=== PATIENT | female | born 1965 | race Caucasian/White ===

== ENCOUNTER → 2024-09-09 | Outpatient (CLI) | payer OTHER ==
--- NOTE | 2024-09-09 12:05 | XR ---
EXAMINATION TYPE: XR Hip 2 views RT and AP Pelvis DATE OF EXAM: 09/09/2024 COMPARISON: NONE CLINICAL INDICATION: Female, 59 years old with history of M25.551 RIGHT HIP PAIN; FINDINGS: SI joints appear symmetric and intact as does the pubic symphysis. Bilateral hip joint space is maint ained. Tiny pelvic phleboliths noted. No acute fracture, subluxation, or dislocation. IMPRESSION: No acute osseous abnormality seen. [facility], , 09/09/2024 12:03 PM
[2024-09-09 15:36] LABS: ALT 23 U/L (8-44); AST 29 U/L (13-35); Albumin 4.3 g/dL (3.8-4.9); Albumin/Globulin Ratio 1.65 Ratio (1.60-3.17); Alkaline Phosphatase 58 U/L (41-126); BUN/Creat Ratio 18.38 Ratio (12.00-20.00); Blood Urea Nitrogen 14.7 mg/dL (9.0-27.0); Calcium 9.2 mg/dL (8.7-10.3); Carbon Dioxide 28.2 mmol/L (21.6-31.8); Chloride 105 mmol/L (96-109); Chol/HDL Ratio 3.66 Ratio; Globulin 2.6 g/dL (1.6-3.3); Glucose 93 mg/dL (70-110); LDL Cholesterol,Calculated 112.1 mg/dL (0.0-131.0); Potassium 3.9 mmol/L (3.5-5.5); Sodium 142 mmol/L (135-145); T4, Free (Free Thyroxine) 1.08 ng/dL (0.80-1.80); Total Bilirubin 0.4 mg/dL (0.3-1.2); Total Protein 6.9 g/dL (6.2-8.2)
[2024-09-09 15:40] LABS: Basophils # (A) 0.03 X 10*3/uL (0.00-0.10); Basophils % (A) 1.3 %; Eosinophils # (A) 0.08 X 10*3/uL (0.04-0.35); Eosinophils % (A) 3.4 %; HCT 40.3 % (37.2-46.3); HGB 13.2 g/dL (12.0-15.0); Lymphocytes # (A) 0.89 X 10*3/uL (0.90-5.00); Lymphocytes % (A) 37.4 %; MCH 30.7 pg (27.0-32.0); MCHC 32.8 g/dL (32.0-37.0); MCV 93.7 FL (80.0-97.0); Monocytes % (A) 8.4 %; NRBC Per 100 WBC 0 X 10*3/uL (0.00-0.01); Neutrophils # (A) 1.17 X 10*3/uL (1.80-7.70); Neutrophils % (A) 49.1 %; Platelet Count 192 X 10*3/uL (140-440); RDW 11.9 % (11.5-14.5); WBC 2.38 X 10*3/uL (4.50-10.00)
== END | disposition home or self-care (01) ==
LOC: LABWHC1 10:10
PROVIDERS: ATTEND Family Medicine
DX: Z00.00 Encounter for general adult medical examination without abnormal findings (principal); E03.9 Hypothyroidism, unspecified; M25.551 Pain in right hip
CPT/HCPCS: 36415; 73502; 80053; 80061; 84439; 84443; 85025

== ENCOUNTER → 2024-10-09 | Outpatient (CLI) | payer OTHER ==
[2024-10-09 11:02] VITALS: BP 118/85; PULSE 68; RESP 19; TEMP 97.3
--- NOTE | 2024-10-09 15:45 | P.PAINPG ---
PQRS Measure Charge Sheet Comment: HISTORY OF PRESENT ILLNESS: A 59 yr old female as a referral from Catherine JAIME presents today w severe and chronic neck pain > 1 yr secondary to radiculopathy, spondylosis and facet arthropathy without myelopathy for evaluation. Pt states pain level is provoked at 8 /10 in intensity, constant, localized in the cervical spine, predominantly axial, sharp/ stabbing in character w occasional shooting pain towards the BL shoulders. Pain is provoked by flexion, sleeping on side. Pain is alleviated by PT x 6 months which ended in 2022, physician guided home exercises 4-5 times weekly since 2021, heat, medications (Tyl, Ibu), CBD topical, repositioning and rest . Cervical disability score at 26. PMH: OA, Hypothyroidism, Anxiety PSH: Hysterectomy SH: Former tobacco user, No ETOH abuse, No illicit drug use FH: Mo- Hypothyroidism All: See list Meds: See list REVIEW OF ORGAN SYSTEMS: CONSTITUTIONAL: No fevers or chills. No recent weight loss. NEUROLOGICAL: + numbness and tingling along the distal extremities. No seizure disorders or headaches. MUSCULOSKELETAL: + pain PSYCHIATRIC: Denies current depression or suicidal thoughts. Physical Examinations : Constitutional : Cooperative , not in acute distress . Neurologic : Cranial nerve II to XII intact. No focal neurological deficits. Psychiatric : alert & oriented x 3. Matching mood & appropriate affect. Judgment & insight intact. Musculoskeletal : Cervical Spine Motor strength in the deltoid and biceps: Normal right side. Normal Left side Motor strength biceps and the wrist extensors: Normal right side . Normal left side Motor strength in the triceps muscle: Normal right side. Normal left side Deep tendon reflexes: Normal at the biceps. Normal at Brachioradialis. Normal at triceps Vertebral body tenderness to deep palpation over C6 Cervical facet loading test: positive bilaterally Spurling test: positive bilaterally Neck distraction test: positive bilaterally Bong sign: positive bilaterally Lumbar spine Motor strength lower extremities ,thigh and legs 5/5 Right side , 5/5 Left side Deep tendon reflexes : Normal Knee Jerk. Normal Ankle Jerk Vertebral body tenderness over Nava Test positive Lumbar facet Loading Test: positive Right / positive Left Range of motion of the lumbar spine Flexion 30 degrees, extension 10 degrees Straight Leg Raise test: Left/ Right positive at degrees Jordi test: positive right / positive left. Severe tenderness over the Sacroiliac joint on the Right / Left sides Gaenslen test: positive bilaterally Seated flexion test: positive bilaterally. Sacral spine : Severe tenderness over the Sacroiliac joint: right side / left side Range of motion: Flexion of the lumbar spine <60 degrees Range of motion: Extension of the lumbar spine <20 degrees Gaenslen's Test positive Jordi test: positive right side / left side Thigh Thrust Test Sacral Thrust Test Imaging: None on file, awaiting reports from PCP's office Assessment/ Plan : Cervical radiculopathy DOROTA forms completed. RTC in 2 wks. All questions answered. I have spent greater than 30 minutes on patient care today. Dr Livingston was available by phone for the evaluation of this patient. The time was used to review the medical records including relevant urine studies and Prescription history (MAPs), review of the available imaging, evaluation and examination of the patient, coordination of care with the medical staff and if applicable referring physicians, as well as creation of the medical record - Pain Location Neck Non-Pharmacological Interventions: Heat, Massage Pharmacological Interventions: PRN Medication Controlled Substance Measures - Controlled Substance Measures Is patient prescribed a controlled substance at discharge?: No
== END ==
LOC: PNWHC3 10:29
PROVIDERS: ATTEND Specialist
DX: M54.12 Radiculopathy, cervical region (principal)
CPT/HCPCS: 99202

== ENCOUNTER → 2024-11-05 | Outpatient (CLI) | payer OTHER ==
--- NOTE | 2024-11-05 12:39 | MR ---
MRI CERVICAL SPINE: CLINICAL HISTORY: Neck pain, headaches. Neck pain, headaches. Radiculopathy. TECHNIQUE: Multiplanar, multisequence imaging of the cervical spine is performed without IV contrast. COMPARISON: None. FINDINGS: Sagittal images of the cervical spine show the craniocervical junction to appear within nor mal limits. The cervical and upper thoracic spinal cord is normal in course, caliber, and signal. Th ere is grade 1 retrolisthesis C4 on C5 and C5 on C6. The vertebral body heights are normal. There i s moderate spurring and disc space narrowing at the C4-C5 and C5-C6 levels. The bone marrow signal in tensity is within normal limits. Axial images show C2-C3 level to appear within normal limits. Axial images at C3-C4 level shows mild broad-based posterior disc protrusion minimally effacing anter ior thecal sac. Bilateral neural foramina are patent. Axial images at C4-C5 level shows spondylosis with broad-based left paracentral disc protrusion effac ing anterolateral thecal sac up to the ventral surface of spinal cord and causing moderate to advance d left-sided neural foraminal narrowing. Axial images at C5-C6 level show focal left paracentral/foraminal disc protrusion facing anterolatera lly thecal sac and causing moderate left-sided neural foraminal narrowing. Axial images at C6-C7 and C7-T1 levels appear within normal limits. There is suggestion of at least one posterior T2 hyperintense left thyroid nodule measuring 1.1 cm ax ial image 22. IMPRESSION: 1. Multilevel spondylolisthesis and degenerative change in the mid cervical spine as detailed above. 2. Greater than 1 cm left thyroid nodule felt present. Advise thyroid ultrasound follow-up to further evaluate and characterize if this is not known finding. [facility], , 11/05/2024 12:36 PM
== END | disposition home or self-care (01) ==
LOC: RADMRIMAIN 10:03
PROVIDERS: ATTEND Specialist
DX: M50.122 Cervical disc disorder at C5-C6 level with radiculopathy (principal); M47.26 Other spondylosis with radiculopathy, lumbar region; M43.12 Spondylolisthesis, cervical region; E04.1 Nontoxic single thyroid nodule; M99.71 Connective tissue and disc stenosis of intervertebral foramina of cervical region
CPT/HCPCS: 72141

== ENCOUNTER → 2024-11-27 | Outpatient (CLI) | payer OTHER ==
--- NOTE | 2024-11-27 14:06 | US ---
EXAMINATION TYPE: US thyroid st tissue head/neck DATE OF EXAM: 11/27/2024 COMPARISON: MR CLINICAL INDICATION: Female, 59 years old with history of E05.00 THYROTOXICOSIS W DIFFUSE GOITER; On thyroid meds. Patient states having history of nodule with biopsy at [facility]. TECHNIQUE: Grayscale and color Doppler imaging of the thyroid gland. FINDINGS: GLAND SIZE: Right Lobe: 4.4 x 1.3 x 1.4 cm Overall Parenchyma: heterogeneous Left Lobe: 4.7 x 1.5 x 1.2 cm Overall Parenchyma: heterogeneous Isthmus Thickness: 0.4 cm NODULES RIGHT: # of nodules measured on right: 1 1. 0.7 X 0.5 x 0.4 cm, upper lateral, Prior size: no prior here TIRADS Score: 3 TIRADS Category 3: Composition: Solid or almost completely solid (2 points). Echogenicity: Hyperechoic or isoechoic (1 point). Shape: Wider than tall (0 points). Margin: Smooth (0 points). Echogenic foci: None or large comet-tail artifacts (0 points) Recommendation: If >2.5cm: FNA; If >1.5cm: Follow up at 1,3,5 years LEFT: # of nodules measured on left: 1 1. 1.6 X 1.0 x 0.9 cm, upper mid, Prior size: No prior here TIRADS Score: 3 TIRADS Category 3: Composition: Solid or almost completely solid (2 points). Echogenicity: Hyperechoic or isoechoic (1 point). Shape: Wider than tall (0 points). Margin: Smooth (0 points). Echogenic foci: None or large comet-tail artifacts (0 points) Recommendation: If >2.5cm: FNA; If >1.5cm: Follow up at 1,3,5 years ISTHMUS: # of nodules measured in the isthmus: 1 1. 0.8 X 0.7 x 0.3 cm left lateral Prior size: No prior here TIRADS Score: 4 TIRADS Category 4: Composition: Solid or almost completely solid (2 points). Echogenicity: Hypoechoic (2 points). Shape: Wider than tall (0 points). Margin: Smooth (0 points). Echogenic foci: None or large comet-tail artifacts (0 points) Recommendation: If >1.5cm: FNA; If >1cm: Follow up at 1,2, 3,5 years Bilateral neck scanned, no evidence of lymphadenopathy. IMPRESSION: Thyroid nodules that meet criteria for follow-up. [facility], , 11/27/2024 2:04 PM
== END | disposition home or self-care (01) ==
LOC: RADUSWWP 13:01
PROVIDERS: ATTEND Family Medicine
DX: E05.00 Thyrotoxicosis with diffuse goiter without thyrotoxic crisis or storm (principal); E04.2 Nontoxic multinodular goiter
CPT/HCPCS: 76536

== ENCOUNTER → 2024-11-27 | Outpatient (CLI) | payer OTHER ==
[2024-11-27 09:09] VITALS: BP 115/70; PULSE 73; RESP 17; TEMP 98.1
--- NOTE | 2024-11-27 15:46 | P.PAINPG ---
Objective - Vital Signs Vital signs: Vital Signs Temp 98.1 F 11/27/24 09:05 Pulse 73 11/27/24 09:05 Resp 17 11/27/24 09:05 BP 115/70 11/27/24 09:05 Pulse Ox 97 11/27/24 09:05 FiO2 Intake & Output 11/26/24 11/27/24 11/27/24 18:59 06:59 18:59 Weight 72.575 kg PQRS Measure Charge Sheet Mode of Arrival: Ambulatory Comment: HISTORY OF PRESENT ILLNESS: A 59 yr old female presents today w severe and chronic neck pain > 1 yr secondary to radiculopathy, spondylosis and facet arthropathy without myelopathy for evaluation. Pt states pain level is provoked at 8 /10 in intensity, constant, localized in the cervical spine, predominantly axial, sharp/ stabbing in character w occasional shooting pain towards the BL shoulders. Pain is provoked by flexion, sleeping on side. Pain is alleviated by PT x 6 months which ended in 2022, physician guided home exercises 4-5 times weekly since 2021, heat, medications, topical, repositioning and rest . Interventional procedures include C7-T1 SHALA (05/30/23 ineffective) Medications include Tyl, Ibu, CBD topical REVIEW OF ORGAN SYSTEMS: CONSTITUTIONAL: No fevers or chills. No recent weight loss. NEUROLOGICAL: + numbness and tingling along the distal extremities. No seizure disorders or headaches. MUSCULOSKELETAL: + pain PSYCHIATRIC: Denies current depression or suicidal thoughts. Physical Examinations : Constitutional : Cooperative , not in acute distress . Neurologic : Cranial nerve II to XII intact. No focal neurological deficits. Psychiatric : alert & oriented x 3. Matching mood & appropriate affect. Judgment & insight intact. Musculoskeletal : Cervical Spine Motor strength in the deltoid and biceps: Normal right side. Normal Left side Motor strength biceps and the wrist extensors: Normal right side . Normal left side Motor strength in the triceps muscle: Normal right side. Normal left side Deep tendon reflexes: Normal at the b iceps. Normal at Brachioradialis. Normal at triceps Vertebral body tenderness to deep palpation over C6 Cervical facet loading test: positive bilaterally Spurling test: positive BL C6-C7 Neck distraction test: positive bilaterally Bong sign: positive bilaterally Lumbar spine Motor strength lower extremities ,thigh and legs 5/5 Right side , 5/5 Left side Deep tendon reflexes : Normal Knee Jerk. Normal Ankle Jerk Vertebral body tenderness over Nava Test positive Lumbar facet Loading Test: positive Right / positive Left Range of motion of the lumbar spine Flexion 30 degrees, extension 10 degrees Straight Leg Raise test: Left/ Right positive at degrees Jordi test: positive right / positive left. Severe tenderness over the Sacroiliac joint on the Right / Left sides Gaenslen test: positive bilaterally Seated flexion test: positive bilaterally. Sacral spine : Severe tenderness over the Sacroiliac joint: right side / left side Range of motion: Flexion of the lumbar spine <60 degrees Range of motion: Extension of the lumbar spine <20 degrees Gaenslen's Test positive Jordi test: positive right side / left side Thigh Thrust Test Sacral Thrust Test Imaging: MRI noncontrast cervical spine from 11/05/2024 reviewed X ray hips from 09/09/24 reviewed X ray cervical spine from 05/02/23 reviewed Assessment/ Plan : C4-C6 radiculopathy Recommendation of SHALA C6-C7 #1. Risks, benefits of procedure discussed and pt verbalized understanding. Protocol for discontinuation/ continuation of medications alva procedure discussed. All questions answered. I have spent greater than 30 minutes on patient care today. Dr Livingston was available by phone for the evaluation of this patient. The time was used to review the medical records including relevant urine studies and Prescription history (MAPs), review of the available imaging, evaluation and examination of the patient, coordination of care with the medical staff and if applicable referring physicians, as well as creation of the medical record - Pain Location Right Neck Non-Pharmacological Interventions: Heat Pharmacological Interventions: Medication, Topical Medication PQRS Narrative: Blood Pressure 115/70 Pain Intensity [Right Neck] 4 Scale Used Numeric (1 - 10) Hx Alcohol Use (MH) Yes: OCCASIONAL Controlled Substance Measures - Controlled Substance Measures Is patient prescribed a controlled substance at discharge?: Yes When asked, does pt state using other controlled substances?: No If prescribed controlled substance>3 days was MAPS reviewed?: Yes
== END ==
LOC: PNWHC3 08:54
PROVIDERS: ATTEND Specialist
DX: M54.16 Radiculopathy, lumbar region (principal)
CPT/HCPCS: 99212

== ENCOUNTER 2024-12-10 13:18 | Day surgery (SDC) | payer OTHER ==
[2024-12-06 13:51] VITALS: BMI 23.6
[2024-12-10] MEDS ORDERED: LACTATED RINGERS 1,000 ML IV SCH (13:31)
[2024-12-10 13:45] VITALS: RESP 16; TEMP 98.3
[2024-12-10] MEDS ORDERED: DEXAMETHASONE SOD PHOSPHATE 10 MG/ML 1 ML VIAL ONE (14:15)
[2024-12-10] MEDS ORDERED: IOPAMIDOL M200 10 ML VIAL ONE (14:15)
--- NOTE | 2024-12-10 14:25 | P.PCN ---
Date of Procedure: 12/10/24 Procedure(s) Performed: . PROCEDURE 1. Cervical epidural steroid injection under fluoroscopic guidance, C6-7 (fluoroscopy images available in the radiology department ) 2. Cervical epidurogram. PREOPERATIVE DIAGNOSIS: 1- Cervical foraminal stenosis 2- Cervical radiculopathy., 3-cervical spondylosis with cervical Facet arthropathy without myelopathy. POSTOPERATIVE DIAGNOSIS: : 1-cervical foraminal stenosis 2- Cervical radiculopathy. 3-,cervical spondylosis with cervical Facet arthropathy without myelopathy. 4-cervical spinal stenosis ANESTHESIA: Local anesthesia with lidocaine 1% 3 ml only EBL 0 PROCEDURE INDICATION: The patient with neck pain and radiculitis unresponsive to conservative treatment consents for procedure. PROCEDURE DESCRIPTION / TECHNIQUE: The patient was seen and identified in the preoperative area. Risks, benefits, complications, including but not limited to infections ,bleeding , allergic reactions to the medications ,and not complete pain releife, and alternatives were discussed with the patient, the patient agreed to proceed with the procedure and signed the consent. Patient was taken to the OR and time out was completed. The patient was placed in the prone position on the procedure table. A pillow was placed under the patients chest to increase the cervical interlaminar space. The cervical area was prepped and draped in the usual sterile fashion. Vital signs were closely monitored during the procedure. Using anterior-posterior fluoroscopy, the C6-7 interlaminar space was identified and the skin over this site was marked and then infiltrated with 1% lidocaine subcutaneously. Subsequently, a 20-gauge 3-1/2-inch Tuohy epidural needle was inserted and advanced toward the epidural space by means of the ``hanging-drop technique and guided by AP and lateral fluoroscopy. The correct needle position in the epidural space was verified with the injection of 2 mL of the water soluble contrast dye Isovue-200 and observing an excellent epidurogram with the epidural spread of the dye, after negative aspiration for blood and CSF and in the absence of paresthesias. then, mixture containing 20 mg Dexamethasone and 2 ml of preservative-free normal saline injected and a washout of epidurogram was seen. Needle was withdrawn intact, skin was cleansed, and bandages were applied. Complications= none. Disposition= patient was placed in supine position and transferred to the recovery room area in stable condition and there was no evidence of upper or lower extremity motor or sensory deficit after the procedure patient was discharged from recovery room after discharge criteria met and home discharge instructions was given by the staff and patient will follow with the pain clinic in 2-4 weeks
--- NOTE | 2024-12-10 14:31 | FL ---
EXAMINATION TYPE: FL guided pain mgmt statistic DATE OF EXAM: 12/10/2024 CLINICAL INDICATION: Female, 59 years old with history of KOLE; PHH, pain TECHNIQUE: Fluoroscopy. COMPARISON: None. FINDINGS: Fluoroscopic guidance was provided during pain relief procedure performed by Dr. Livingston . A total of 3.7 seconds of fluoroscopic time was utilized during the procedure and one image was ac quired. Image acquired shows needle localization near the cervicothoracic junction. Degeneration duncan nges of the visualized joints. Total DAP: 0.56470 mGym2. IMPRESSION: As Above. [facility], , 12/10/2024 2:29 PM
[2024-12-10 14:43] VITALS: BP 144/86; PULSE 68
== END 2024-12-10 14:55 | disposition home or self-care (01) ==
LOC: ORPAIN 13:18
PROVIDERS: ATTEND Specialist
DX: M48.02 Spinal stenosis, cervical region (principal); M47.22 Other spondylosis with radiculopathy, cervical region
CPT/HCPCS: 62321; J1100; Q9966

== ENCOUNTER → 2024-12-24 | Outpatient (CLI) | payer OTHER ==
--- NOTE | 2024-12-25 11:13 | MM ---
Reason for Exam: Screening (asymptomatic). Last screening mammogram was performed 9 month(s) ago. Patient History: Menarche at age 17. First Full-Term at age 31. Late child-bearing (after 31). Hysterectomy at age 54. Postmenopausal. Risk Values: Katelyn 5 year model risk: 1.7%. NCI Lifetime model risk: 9.6%. Prior Study Comparison: 03/01/2022 Bilateral Screening Mammogram, [facility]. 03/03/2022 Bilateral Screening Mammogram, [facility] 03/20/2023 Bilateral Screening Mammogram, [facility]. 03/25/2024 Bilateral Screening Mammogram, [facility]. Tissue Density: The breasts are heterogeneously dense, which may obscure small masses. Findings: Analyzed By CAD. There is no suspicious group of microcalcifications or new suspicious mass in either breast. Overall Assessment: Benign, BI-RAD 2 Management: Screening Mammogram of both breasts in 1 year. . Patient should continue monthly self-breast exams. A clinical breast exam by your physician is recommended on an annual basis. This exam should not preclude additional follow-up of suspicious palpable abnormalities. Note on Katelyn scores and lifetime risk: 1. A Katelyn score greater than 3% is considered moderate risk. If this is the case, consider specialist referral to assess eligibility for a risk reducing agent. 2. If overall lifetime risk for the development of breast cancer is 20% or higher, the patient may qualify for future screening with alternating mammogram and breast MRI. [facility], , 12/25/2024 11:10 AM. Electronically signed and approved by: Clem Allen M.D. Radiologis
== END | disposition home or self-care (01) ==
LOC: RADMAMWWP 09:45
PROVIDERS: ATTEND Internal Medicine Pulmonary Disease
DX: Z12.31 Encounter for screening mammogram for malignant neoplasm of breast (principal); R92.333 Mammographic heterogeneous density, bilateral breasts; Z78.0 Asymptomatic menopausal state
CPT/HCPCS: 77063; 77067

== ENCOUNTER → 2025-01-08 | Outpatient (CLI) | payer OTHER ==
[2025-01-08 09:46] VITALS: BP 128/78; PULSE 66; RESP 16; TEMP 97.1
--- NOTE | 2025-01-08 16:48 | P.PAINPG ---
PQRS Measure Charge Sheet Comment: HISTORY OF PRESENT ILLNESS: A 59 yr old female presents today w severe and chronic neck pain > 1 yr secondary to radiculopathy, spondylosis and facet arthropathy without myelopathy for evaluation s/p SHALA C6-C7 #1. Pt states she experienced 80 % pain relief x 4 wks s/p procedure. Pt states pain level is provoked at 5-8 /10 in intensity, constant, localized in the R cervical spine, predominantly axial, sharp in character w occasional shooting pain up the R side of head and neck. Pain is provoked by flexion, sleeping on side. Pain is alleviated by PT x 6 months which ended in 2022, physician guided home exercises 4-5 times weekly since 2021, heat, medications, topical, repositioning and rest . Interventional procedures include C7-T1 SHALA (05/30/23 ineffective), SHALA C6-C7 x1 (12/10/24) Medications include Tyl, Ibu, CBD topical REVIEW OF ORGAN SYSTEMS: CONSTITUTIONAL: No fevers or chills. No recent weight loss. NEUROLOGICAL: + numbness and tingling along the distal extremities. No seizure disorders or headaches. MUSCULOSKELETAL: + pain PSYCHIATRIC: Denies current depression or suicidal thoughts. Physical Examinations : Constitutional : Cooperative , not in acute distress . Neurologic : Cranial nerve II to XII intact. No focal neurological deficits. Psychiatric : alert & oriented x 3. Matching mood & appropriate affect. Judgment & insight intact. Musculoskeletal : Cervical Spine Motor strength in the deltoid and biceps: Normal right side. Normal Left side Motor strength biceps and the wrist extensors: Normal right side . Normal left side Motor strength in the triceps muscle: Normal right side. Normal left side Deep tendon reflexes: Normal at the biceps. Normal at Brachioradialis. Normal at triceps Vertebral body tenderness to deep palpation over C6 Cervical facet loading test: positive R C4-C5/ C5-C6 Spurling test: positive BL C6-C7 Neck distraction test: positive bilaterally Bong sign: positive bilaterally Lumbar spine Motor strength lower extremities ,thigh and legs 5/5 Right side , 5/5 Left side Deep tendon reflexes : Normal Knee Jerk. Normal Ankle Jerk Vertebral body tenderness over Nava Test positive Lumbar facet Loading Test: positive Right / positive Left Range of motion of the lumbar spine Flexion 30 degrees, extension 10 degrees Straight Leg Raise test: Left/ Right positive at degrees Jordi test: positive right / positive left. Severe tenderness over the Sacroiliac joint on the Right / Left sides Gaenslen test: positive bilaterally Seated flexion test: positive bilaterally. Sacral spine : Severe tenderness over the Sacroiliac joint: right side / left side Range of motion: Flexion of the lumbar spine <60 degrees Range of motion: Extension of the lumbar spine <20 degrees Gaenslen's Test positive Jordi test: positive right side / left side Thigh Thrust Test Sacral Thrust Test Imaging: MRI noncontrast cervical spine from 11/05/2024 reviewed X ray hips from 09/09/24 reviewed X ray cervical spine from 05/02/23 reviewed Assessment/ Plan : C4-C6 radiculopathy, C4-C6 facet arthropathy Recommendation of R MBB C4-C5/ C5-C6 #1. Risks, benefits of procedure discussed and pt verbalized understanding. Protocol for discontinuation/ continuation of medications alva procedure discussed. Minimal anesthesia including Fentanyl and Versed if clinically indicated. All questions answered. I have spent greater than 30 minutes on patient care today. Dr Livingston was available by phone for the evaluation of this patient. The time was used to review the medical records including relevant urine studies and Prescription history (MAPs), review of the available imaging, evaluation and examination of the patient, coordination of care with the medical staff and if applicable referring physicians, as well as creation of the medical record PQRS Narrative: Hx Alcohol Use (MH) Yes: OCCASIONAL Home Medications: Ambulatory Orders diazePAM [Valium] 5 mg PO DAILY 1 Days #2 tab 11/27/24 Ascorbic Acid [Vitamin C] 500 mg PO DAILY 12/06/24 Cholecalciferol (Vitamin D3) [Vitamin D3 (125 MCG = 5,000 IU)] 125 mcg PO DAILY 12/06/24 L.acidoph,Paracasei, B.lactis [Probiotic] 1 each PO DAILY 12/06/24 Levothyroxine Sodium 100 mcg PO DAILY 12/06/24 Magnesium Oxide [Magnesium] 500 mg PO DAILY 12/06/24 Multivit-Min/Iron/Folic/Lutein [Centrum Silver Women Tablet] 1 each PO DAILY 12/06/24 Rizatriptan Odt [Maxalt Top Lift Nailer] 10 mg PO ONCE PRN 12/06/24 calcium polycarbophiL [Fibercon] 625 mg PO DAILY 12/06/24 estradioL [Estrace] 1 mg PO DAILY 12/06/24 Controlled Substance Measures - Controlled Substance Measures Is patient prescribed a controlled substance at discharge?: No
== END ==
LOC: PNWHC3 09:25
PROVIDERS: ATTEND Specialist
DX: M47.22 Other spondylosis with radiculopathy, cervical region (principal)
CPT/HCPCS: 99211

== ENCOUNTER 2025-02-18 12:55 | Day surgery (SDC) | payer OTHER ==
[2025-01-31 09:42] VITALS: BMI 23.6
[2025-02-18 14:01] VITALS: RESP 16; TEMP 98.4
[2025-02-18] MEDS: IV FLUID CONTINUATION 1,000 ML IV ONE (14:05)
[2025-02-18] MEDS: LACTATED RINGERS 1,000 ML IV SCH (14:05)
[2025-02-18] MEDS ORDERED: ROPIVACAINE 5 MG/ML 30 ML VIAL ONE (14:24)
[2025-02-18] MEDS ORDERED: fentaNYL (PF) 50 MCG/ML 2 ML AMP ONE (14:24)
[2025-02-18] MEDS ORDERED: MIDAZOLAM 2 MG/2 ML VIAL ONE (14:24)
[2025-02-18] MEDS: IV FLUID CONTINUATION 500 ML IV ONE (14:54)
--- NOTE | 2025-02-18 14:56 | P.PCN ---
Description of Procedure: Preprocedure diagnosis. Cervical facet joint arthropathy, cervical spine spondylosis, cervical degenerative disc disease. Postprocedure diagnosis. As above. Procedure done. Bilateral C4-5, C5-6 facet joint (C4, C5, C6 medial branch of dorsal ramus) diagnostic injection with local anesthetics under fluoroscopic guidance. Anesthesia. IV sedation of Versed 2 milligram, fentanyl 50 micrograms give in OR. Continuous pulse ox, EKG, blood pressure and verbal communication was maintained with the patient in OR. Sedation time- [id number] . Blood loss. None. Indication. Patient has got the diagnoses of cervical spondylolysis, facet joint arthropathy with neck pain. Discussed with the patient procedure, alternatives, complications including infection, bleeding, nerve damage, paralysis all of which could be permanent. Patient understands and all questions are answered. Patient has symptoms both right and left side of the neck that is why I am doing bilateral diagnostic medial branch block rather than only 1 side as scheduled. Discussed with the patient. Procedure note. After getting consent patient in OR in prone position. Back of the neck was prepped with chlorhexidine and draped in sterile fashion. After injecting 3 mL of plain 1% lidocaine subcutaneously, a 22-gauge spinal needle was introduced under tunnel vision of the fluoroscope AP view at the waist of the articular pillar (lateral mass) at C4 vertebral level. In the lateral view of the fluoroscope it was confirmed that the tip of the needle stayed within the dorsal half of the articular pillar (lateral mass). So, right C4-5 facet joint was targeted by blocking right C4 and C5 medial branch, right C5-6 facet joint was targeted by blocking right C5 and C6 medial branch. In exactly the same way , after subcutaneous injection of lidocaine, 22-gauge spinal needles were introduced under tunnel vision of the fluoroscope AP view at the waist of the articular pillars (lateral mass) at C5 and C6 vertebral level. In the lateral view of the fluoroscope it was confirmed that the tip of the needle stayed within the dorsal half of the articular pillar (lateral mass). At each needle, 0.5 mL of 0.5% ropivacaine preservative-free was injected. In exactly same way left C4-5, C5-6 facet joints were targeted by blocking left C4, C5, C6 medial branch of dorsal ramus. After the procedure needle was taken out and bandage was applied. Disposition. Patient tolerated the procedure well. No complication. Discharged home in stable condition.
--- NOTE | 2025-02-18 14:57 | FL ---
Fluoroscopy INDICATION: Pain FINDINGS: Fluoroscopy time: 41.9 seconds. Total dose area product (DAP) in uGy*m?, mGy*cm? (or similar): 0.87280 Images obtained: 2. Images document needles directed towards the cervical spine IMPRESSION: 1. Documentation of fluoroscopy. [facility], , 02/18/2025 2:54 PM
[2025-02-18 15:11] VITALS: BP 123/87; PULSE 64
== END 2025-02-18 15:34 | disposition home or self-care (01) ==
LOC: ORPAIN 12:55
PROVIDERS: ATTEND Pain Medicine Interventional Pain Medicine
DX: M47.812 Spondylosis without myelopathy or radiculopathy, cervical region (principal); M50.323 Other cervical disc degeneration at C6-C7 level
CPT/HCPCS: 64490; 64491; J2250; J3010; J2795; 99152; 99153

== ENCOUNTER → 2025-03-05 | Outpatient (CLI) | payer OTHER ==
[2025-03-05 07:53] VITALS: BP 131/82; PULSE 56; RESP 16; TEMP 97.2
--- NOTE | 2025-03-05 16:10 | P.PAINPG ---
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 Pt states she experienced 80 % pain relief x 24 hrs s/p procedure. Pt states pain level is provoked at 5-8 /10 in intensity, constant, localized in the cervical spine R> L, predominantly axial, sharp in character without shooting pain. Pain is provoked by flexion, sleeping on side. Pain is alleviated by PT x 6 months which ended in 2022, physician guided home exercises 4-5 times weekly since 2021, heat, medications, topical, repositioning and rest . Interventional procedures include C7-T1 SHALA (05/30/23 ineffective), SHALA C6-C7 x1 (12/10/24), BL MBB C4-C6 x1 Medications include Tyl, Ibu, CBD topical REVIEW OF ORGAN SYSTEMS: CONSTITUTIONAL: No fevers or chills. No recent weight loss. NEUROLOGICAL: + numbness and tingling along the distal extremities. No seizure disorders or headaches. MUSCULOSKELETAL: + pain PSYCHIATRIC: Denies current depression or suicidal thoughts. Physical Examinations : Constitutional : Cooperative , not in acute distress . Neurologic : Cranial nerve II to XII intact. No focal neurological deficits. Psychiatric : alert & oriented x 3. Matching mood & appropriate affect. Judgment & insight intact. Musculoskeletal : Cervical Spine Motor strength in the deltoid and biceps: Normal right side. Normal Left side Motor strength biceps and the wrist extensors: Normal right side . Normal left side Motor strength in the triceps muscle: Normal right side. Normal left side Deep tendon reflexes: Normal at the biceps. Normal at Brachioradialis. Normal at triceps Vertebral body tenderness to deep palpation over C6 Cervical facet loading test: positive R C4-C5/ C5-C6 Spurling test: positive BL C6-C7 Neck distraction test: positive bilaterally Bong sign: positive bilaterally Lumbar spine Motor strength lower extremities ,thigh and legs 5/5 Right side , 5/5 Left side Deep tendon reflexes : Normal Knee Jerk. Normal Ankle Jerk Vertebral body tenderness over Nava Test positive Lumbar facet Loading Test: positive Right / positive Left Range of motion of the lumbar spine Flexion 30 degrees, extension 10 degrees Straight Leg Raise test: Left/ Right positive at degrees Jordi test: positive right / positive left. Severe tenderness over the Sacroiliac joint on the Right / Left sides Gaenslen test: positive bilaterally Seated flexion test: positive bilaterally. Sacral spine : Severe tenderness over the Sacroiliac joint: right side / left side Range of motion: Flexion of the lumbar spine <60 degrees Range of motion: Extension of the lumbar spine <20 degrees Gaenslen's Test positive Jordi test: positive right side / left side Thigh Thrust Test Sacral Thrust Test Imaging: MRI noncontrast cervical spine from 11/05/2024 reviewed X ray hips from 09/09/24 reviewed X ray cervical spine from 05/02/23 reviewed Assessment/ Plan : C4-C6 radiculopathy, C4-C6 facet arthropathy Recommendation of BL MBB C4-C5/ C5-C6 #2. Risks, benefits of procedure discussed and pt verbalized understanding. Protocol for discontinuation/ continuation of medications alva procedure discussed. Minimal anesthesia including Fentanyl and Versed if clinically indicated. All questions answered. I have spent greater than 30 minutes on patient care today. Dr Livingston was available by phone for the evaluation of this patient. The time was used to review the medical records including relevant urine studies and Prescription history (MAPs), review of the available imaging, evaluation and examination of the patient, coordination of care with the medical staff and if applicable referring physicians, as well as creation of the medical record - Pain Location Bilateral Lower Neck Non-Pharmacological Interventions: Heat, Home Exercise, Inactivity, Physical Therapy, Position/Reposition, Sitting, Stretching Pharmacological Interventions: Block, Epidural, PRN Medication, Topical Medication PQRS Narrative: Hx Alcohol Use (MH) Yes: OCCASIONAL Home Medications: Ambulatory Orders Ascorbic Acid [Vitamin C] 500 mg PO DAILY 12/06/24 Cholecalciferol (Vitamin D3) [Vitamin D3 (125 MCG = 5,000 IU)] 125 mcg PO DAILY 12/06/24 L.acidoph,Paracasei, B.lactis [Probiotic] 1 each PO DAILY 12/06/24 Levothyroxine Sodium 100 mcg PO DAILY 12/06/24 Magnesium Oxide [Magnesium] 500 mg PO DAILY 12/06/24 Multivit-Min/Iron/Folic/Lutein [Centrum Silver Women Tablet] 1 each PO DAILY 12/06/24 Rizatriptan Odt [Maxalt Shoe Puller] 10 mg PO ONCE PRN 12/06/24 calcium polycarbophiL [Fibercon] 625 mg PO DAILY 12/06/24 estradioL [Estrace] 1 mg PO DAILY 12/06/24 Ibuprofen [Motrin] 800 mg PO Q8H PRN 01/31/25 traZODone HCL 150 mg PO HS 01/31/25 Controlled Substance Measures - Controlled Substance Measures Is patient prescribed a controlled substance at discharge?: No
== END ==
LOC: PNWHC3 07:33
PROVIDERS: ATTEND Specialist
DX: M47.22 Other spondylosis with radiculopathy, cervical region (principal)
CPT/HCPCS: 99211

== ENCOUNTER 2025-03-07 13:18 | Day surgery (SDC) | payer OTHER ==
[2025-03-07] MEDS: IV FLUID CONTINUATION 1,000 ML IV ONE (13:35)
[2025-03-07 13:42] VITALS: TEMP 97.2
[2025-03-07] MEDS ORDERED: LACTATED RINGERS 1,000 ML IV SCH (13:56)
[2025-03-07] MEDS: LACTATED RINGERS 1,000 ML BAG IV STA (13:57)
[2025-03-07] MEDS ORDERED: MIDAZOLAM 2 MG/2 ML VIAL ONE (14:35)
[2025-03-07] MEDS ORDERED: ROPIVACAINE 5MG/ML 20ML VIAL ONE (14:35)
[2025-03-07] MEDS ORDERED: fentaNYL (PF) 50 MCG/ML 2 ML AMP ONE (14:35)
--- NOTE | 2025-03-07 14:55 | P.PCN ---
Date of Procedure: 03/07/25 Procedure(s) Performed: PREOPERATIVE DIAGNOSIS: 1-Cervical Spondylosis with Facet Arthropathy.without myelopathy. 2-cervical degenerative disc disease POSTOPERATIVE DIAGNOSIS:1-cervical spondylosis with facet arthropathy without myelopathy. 2-cervical degenerative disc disease PROCEDURES: Diagnostic bilateral C4 , C5 ,C6 medial branch blocks, with fluoroscopic guidance (fluoroscopy images available in radiology department ) ( to target the facet joint at bilateral C4- 5, C5- 6 )#2nd ANESTHESIA: moderate sedation with Versed 2 mg , and fentanyl 50 micrograms (sedation start time 14:35 ,end time 14:53 ) EBL: Minimal PROCEDURE INDICATION: The patient with neck pain secondary to cervical arthropathy unresponsive to more conservative treatments. PROCEDURE DESCRIPTION / TECHNIQUE: The patient was seen and identified in the preoperative area. Risks, benefits, complications, and alternatives were discussed with the patient, the patient agreed to proceed with the procedure and signed the consent. IV was started. Vital signs remained stable throughout the procedure. Patient was taken to the OR and time out was completed. The patient was placed in the prone position on the procedure table. A pillow was placed under the patients chest to increase the cervical interlaminar space. The cervical area was prepped and draped in the usual sterile fashion. Critical pause was taken. Vital signs were closely monitored during the procedure. Conscious sedation was used during the procedure to decrease patient´s anxiety. Using cross-table lateral fluoroscopy, the centroid of the trapezoid of right C4 , C5 and C6, was identified, marked, and localized with 1% lidocaine 1 ml at each level for skin and Sub Q infiltrations . Subsequently, a 23 G 3 spinal needle was advanced guided by fluoroscopy to the centroid of the trapezoid of Right C4 , C5, C6 . [place] tip position was confirmed at the centroid of the trapezoids of Right C4 , C5 ,C6 with anteroposterior fluoroscopy. Subsequently, 2 ml of preservative-free Ropivacaine 0.5% and half ml was injected after negative aspiration for blood and CSF. [place] was then removed intact the same procedure was repeated at the left C4 , C5 , and C6 levels. COMPLICATIONS: No acute complications. DISPOSITION / PLANS: The patient was placed in a supine position and transferred to the recovery area in a stable condition for observation and was discharged from the recovery room after meeting discharge criteria. Home discharge instructions given to the patient by the staff. The patient was reexamined prior to discharge. The patient will schedule a follow up in the clinic in 2-4 weeks.
[2025-03-07] MEDS: IV FLUID CONTINUATION 700 ML IV ONE (15:01)
[2025-03-07 15:03] VITALS: RESP 16
--- NOTE | 2025-03-07 15:10 | FL ---
EXAMINATION TYPE: FL guided pain mgmt statistic DATE OF EXAM: 03/07/2025 FLUOROSCOPY MIGNON CERV FB 25 SEC FL .[id number] DAP 4 images are submitted. [facility], Workstation: [id number], 03/07/2025 3:08 PM
[2025-03-07 15:29] VITALS: BP 139/80; PULSE 56
== END 2025-03-07 15:43 | disposition home or self-care (01) ==
LOC: ORPAIN 13:18
PROVIDERS: ATTEND Specialist
DX: M47.812 Spondylosis without myelopathy or radiculopathy, cervical region (principal); M50.321 Other cervical disc degeneration at C4-C5 level
CPT/HCPCS: 64490; 64491; J2250; J3010; J2795; 99152

== ENCOUNTER → 2025-03-31 | Outpatient (CLI) | payer OTHER ==
[2025-03-31 08:12] VITALS: BP 119/79; PULSE 61; RESP 19
--- NOTE | 2025-03-31 16:40 | P.PAINPG ---
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 Pt states she experienced 85 % pain relief x 24 hrs s/p procedure. Pt states pain level is provoked at 5-8 /10 in intensity, constant, localized in the cervical spine R> L, predominantly axial, sharp in character without shooting pain. Pain is provoked by flexion, sleeping on side. Pain is alleviated by PT x 6 months which ended in 2022, physician guided home exercises 4-5 times weekly since 2021, heat, medications, topical, repositioning and rest . Interventional procedures include C7-T1 SHALA (05/30/23 ineffective), SHALA C6-C7 x1 (12/10/24), BL MBB C4-C6 x2 Medications include Tyl, Ibu, CBD topical REVIEW OF ORGAN SYSTEMS: CONSTITUTIONAL: No fevers or chills. No recent weight loss. NEUROLOGICAL: + numbness and tingling along the distal extremities. No seizure disorders or headaches. MUSCULOSKELETAL: + pain PSYCHIATRIC: Denies current depression or suicidal thoughts. Physical Examinations : Constitutional : Cooperative , not in acute distress . Neurologic : Cranial nerve II to XII intact. No focal neurological deficits. Psychiatric : alert & oriented x 3. Matching mood & appropriate affect. Judgment & insight intact. Musculoskeletal : Cervical Spine Motor strength in the deltoid and biceps: Normal right side. Normal Left side Motor strength biceps and the wrist extensors: Normal right side . Normal left side Motor strength in the triceps muscle: Normal right side. Normal left side Deep tendon reflexes: Normal at the biceps. Normal at Brachioradialis. Normal at triceps Vertebral body tenderness to deep palpation over C6 Cervical facet loading test: positive R C4-C5/ C5-C6 Spurling test: positive BL C6-C7 Neck distraction test: positive bilaterally Bong sign: positive bilaterally Lumbar spine Motor strength lower extremities ,thigh and legs 5/5 Right side , 5/5 Left side Deep tendon reflexes : Normal Knee Jerk. Normal Ankle Jerk Vertebral body tenderness over Nava Test positive Lumbar facet Loading Test: positive Right / positive Left Range of motion of the lumbar spine Flexion 30 degrees, extension 10 degrees Straight Leg Raise test: Left/ Right positive at degrees Jordi test: positive right / positive left. Severe tenderness over the Sacroiliac joint on the Right / Left sides Gaenslen test: positive bilaterally Seated flexion test: positive bilaterally. Sacral spine : Severe tenderness over the Sacroiliac joint: right side / left side Range of motion: Flexion of the lumbar spine <60 degrees Range of motion: Extension of the lumbar spine <20 degrees Gaenslen's Test positive Jordi test: positive right side / left side Thigh Thrust Test Sacral Thrust Test Imaging: MRI noncontrast cervical spine from 11/05/2024 reviewed X ray hips from 09/09/24 reviewed X ray cervical spine from 05/02/23 reviewed Assessment/ Plan : C4-C6 radiculopathy, C4-C6 facet arthropathy Recommendation of BL RFA C4-C5/ C5-C6. Risks, benefits of procedure discussed and pt verbalized understanding. Protocol for discontinuation/ continuation of medications alva procedure discussed. Minimal anesthesia including Fentanyl and Versed if clinically indicated. All questions answered. I have spent greater than 30 minutes on patient care today. Dr Livingston was available by phone for the evaluation of this patient. The time was used to review the medical records including relevant urine studies and Prescription history (MAPs), review of the available imaging, evaluation and examination of the patient, coordination of care with the medical staff and if applicable referring physicians, as well as creation of the medical record - Pain Location Neck Non-Pharmacological Interventions: Heat Pharmacological Interventions: Medication PQRS Narrative: Hx Alcohol Use (MH) Yes: OCCASIONAL Home Medications: Ambulatory Orders Ascorbic Acid [Vitamin C] 500 mg PO DAILY 12/06/24 Cholecalciferol (Vitamin D3) [Vitamin D3 (125 MCG = 5,000 IU)] 125 mcg PO DAILY 12/06/24 L.acidoph,Paracasei, B.lactis [Probiotic] 1 each PO DAILY 12/06/24 Levothyroxine Sodium 100 mcg PO DAILY 12/06/24 Magnesium Oxide [Magnesium] 500 mg PO DAILY 12/06/24 Multivit-Min/Iron/Folic/Lutein [Centrum Silver Women Tablet] 1 each PO DAILY 12/06/24 Rizatriptan Odt [Maxalt Senior Outside Sales Representative] 10 mg PO ONCE PRN 12/06/24 calcium polycarbophiL [Fibercon] 625 mg PO DAILY 12/06/24 estradioL [Estrace] 1 mg PO DAILY 12/06/24 Ibuprofen [Motrin] 800 mg PO Q8H PRN 01/31/25 traZODone HCL 150 mg PO HS 01/31/25 Controlled Substance Measures - Controlled Substance Measures Is patient prescribed a controlled substance at discharge?: No
== END | disposition home or self-care (01) ==
LOC: PNWHC3 07:49
PROVIDERS: ATTEND Specialist
DX: M47.22 Other spondylosis with radiculopathy, cervical region (principal)
CPT/HCPCS: 99212